=== PATIENT | male | born 1995 | race Two or more races ===

== ENCOUNTER 2024-09-25 23:06 | Emergency (ER) | payer MEDICAID, SELFPAY ==
[2024-09-25 23:07] VITALS: BMI 33.2
--- NOTE | 2024-09-25 23:10 | EKG_ITS ---
[facility] Test Date: 2024-09-25 Pat Name: BEN MCGILL Department: Room: - Gender: Male General Medical Practitioner: : 1995 Requested By: ED Temporary Provider Order Number: [id number] Reading MD: ED Temporary Provider Measurements Intervals [place] Rate: 90 P: 31 VT: 136 QRS: 17 QRSD: 106 T: 34 QT: 317 QTc: 388 Interpretive Statements SINUS RHYTHM LOW QRS VOLTAGE IN PRECORDIAL LEADS [QRS DEFLECTION < 1.0 mV IN CHEST LEADS] POSSIBLE RIGHT VENTRICULAR CONDUCTION DELAY [RSR (QR) IN V1/V2] NONSPECIFIC ST ELEVATION [0.05+ mV ST ELEVATION] Compared to ECG 01/11/2022 11:06:10 Low QRS voltage now present ST (T wave) deviation now present /store/S0/[id number]/ecg/[id number].pdf
[2024-09-25 23:17] VITALS: BP 116/81; PULSE 98; RESP 18; TEMP 36.9; O2SAT 95
--- NOTE | 2024-09-26 00:56 | PC.NURSE ---
CALLED PATIENT IN THE LOBBY AND OUTSIDE, NO ANSWER RECEIVED.
--- NOTE | 2024-09-26 01:14 | PC.NURSE ---
NO ANSWER AT ER LOBBY OR OUTSIDE ER TO BE GIVEN MED
--- NOTE | 2024-09-26 01:20 | PC.NURSE ---
NO ANSWER AT ER LOBBY OR OUTSIDE ER.
--- NOTE | 2024-09-26 01:27 | PD.EDRME ---
Rapid Medical Screening Exam E Arrival date/time: 09/25/24 23:06 29M with no significant PMH presents to ED with episode earlier today of dizziness, CP, SOB, and body tingling. Symptoms improved prior to arrival in ED. Chief Complaint: Chest Pain Time Seen by Provider: 09/25/24 23:33 Vital signs: Vital Signs Temperature 98.5 F 09/25/24 23:17 Pulse Rate 98 09/25/24 23:17 Respiratory Rate 18 09/25/24 23:17 Blood Pressure 116/81 09/25/24 23:17 Pulse Oximetry (%) 95 09/25/24 23:17 Oxygen Delivery Method Room Air 09/25/24 23:17
== END 2024-09-26 01:21 | disposition left against medical advice (07) ==
PROVIDERS: Emergency Provider Emergency Medicine
DX: R07.9 Chest pain, unspecified (principal); R42 Dizziness and giddiness; R06.02 Shortness of breath; R20.2 Paresthesia of skin; Z53.29 Procedure and treatment not carried out because of patient's decision for other reasons
CPT/HCPCS: 93005; 99281